=== PATIENT | male | born 1990 | race Two or more races ===

== ENCOUNTER 2022-03-17 19:08 | Emergency (ER) | payer OTHER ==
[~2022-03-17] VITALS: Ht 172.7 cm; Wt 117.9 kg
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
[2022-03-17] MEDS ORDERED: IBUPROFEN SUSP 100 MG/5 ML UDC PO ONE (19:30)
[2022-03-17] MEDS ORDERED: IBUPROFEN 600 MG TABLET ONE (19:42)
[2022-03-17] MEDS ORDERED: IBUPROFEN SUSP 100 MG/5 ML UDC ONE (19:44)
[2022-03-17] MEDS ORDERED: IBUP100O21 PO (20:42)
--- NOTE | 2022-03-17 20:44 | NUR ---
EMT AT BEDSIDE FOR SPLINTING
--- NOTE | 2022-03-17 20:46 | NUR ---
Patient discharged to home in stable condition. Written and verbal after care instructions given. Patient verbalizes understanding of instruction. PT ambulatory with a steady gait
[2022-03-17 20:51] VITALS: BP 110/70
== END 2022-03-17 20:46 | disposition home or self-care (01) ==
LOC: ER 19:18
DX: S92.811A Other fracture of right foot, initial encounter for closed fracture (principal); Z79.1 Long term (current) use of non-steroidal anti-inflammatories (NSAID); W18.30XA Fall on same level, unspecified, initial encounter; Y93.89 Activity, other specified; Y92.89 Other specified places as the place of occurrence of the external cause; Y99.8 Other external cause status
CPT/HCPCS: 73610-TC; 73630-TC